=== PATIENT | female | born 1945 | race Caucasian/White ===

== ENCOUNTER 2016-12-06 15:09 | Emergency (ER) | payer OTHER ==
[~2016-12-06] VITALS: Ht 162.6 cm; Wt 113.4 kg
--- NOTE | ~2016-12-06 | EKG ---
[address] [address] ELECTROCARDIOGRAM REPORT Name: MICHAEL ANDERS Room #: DEP [facility]ENTERKati#: [id number] Admission: 12/06/16 Attend Phys: Discharge: 12/06/16 Date of : 41 Report #: [id number] THIS REPORT FOR: //name// [facility] ED Test Date: 2016-12-06 Test Time: 15:46:18 Pat Name: MICHAEL ANDERS Department: Room: Gender: F Pharmacy Laboratory Technician: [place] : 1945 Requested By: Ralph Thayer Order Number: [id number] MD: Jabari Walker Measurements Intervals [facility] Rate: 64 P: 43 MS: 171 QRS: 7 QRSD: 100 T: 11 QT: 420 QTc: 434 Interpretive Statements Sinus rhythm Abnormal R-wave progression, early transition No previous ECG available for comparison Electronically Signed On 12-07-2016 7:45:07 CDT by Jabari Walker [email or web address] <ELECTRONICALLY SIGNED> By: Jabari Walker MD 12/07/16 0745 [id number] Jabari Walker MD /LUDY
[2016-12-06] MEDS ORDERED: PRILOSEC 10MG C10 MG PO (15:31)
[2016-12-06] MEDS ORDERED: EXCEDRIN CAPLE1 EACH PO (15:31)
[2016-12-06] MEDS ORDERED: ASPIRIN325 PO (15:31)
[2016-12-06 15:43] LABS: ABSOLUTE NEUTROPHILS 3.1 thou/uL (1.4-8.2); BASOPHILS 0.9 % (0.0-2.0); EOSINOPHILS 4.7 % (0.0-3.0); HEMATOCRIT 42.1 % (37.0-47.0); HEMOGLOBIN 14.4 gm/dL (12.0-15.0); LYMPHOCYTES 32.7 % (24.0-44.0); MCH 33.5 pg (26.0-34.0); MCHC 34.2 g/dL (28.0-37.0); MCV 98.1 fL (80.0-100.0); MONOCYTES 7.8 % (1.0-8.0); PLATELET COUNT 150 thou/uL (150-400); POLYS 53.9 % (36.0-66.0); RBC 4.29 mil/uL (4.20-5.00); RDW 14.4 % (10.5-14.5); WBC 5.7 thou/uL (4.0-11.0)
[2016-12-06 15:44] LABS: MANUAL DIFF NO
[2016-12-06 15:52] LABS: ANION GAP 9 mmol/L (7-16); BUN 12 mg/dL (7-18); CALCIUM 9.2 mg/dL (8.5-10.1); CHLORIDE 103 mmol/L (98-107); CO2 25 mmol/L (21-32); CREATININE 0.9 mg/dL (0.6-1.0); GLUCOSE 102 mg/dL (74-106); POTASSIUM 3.7 mmol/L (3.5-5.1); SODIUM 137 mmol/L (136-145)
[2016-12-06 16:00] LABS: ALBUMIN 3.9 g/dL (3.4-5.0); ALKALINE PHOSPHATASE 58 U/L (46-116); MAGNESIUM 1.9 mg/dL (1.8-2.4); SGOT 19 U/L (15-37); SGPT 12 U/L (30-65); TOTAL BILIRUBIN 0.6 mg/dL (<0.1-1.0); TOTAL PROTEIN 7.2 g/dL (6.4-8.2); TROPONIN-I < 0.04 ng/mL (<0.04-0.07)
[2016-12-06 16:33] LABS: URINE BILIRUBIN NEGATIVE (Negative); URINE BLOOD 2+ (Negative); URINE COLOR YELLOW; URINE GLUCOSE-RANDOM* NEGATIVE (Negative); URINE KETONES NEGATIVE (Negative); URINE NITRITE NEGATIVE (Negative); URINE PROTEIN (DIPSTICK) NEGATIVE (Negative); URINE SPECIFIC GRAVITY 1.025 (1.003-1.035); URINE UROBILINOGEN 0.2 E.U./dl (0.2-1.0)
[2016-12-06 16:45] LABS: SQUAMOUS 4-10 Moderate /LPF (0-3)
[2016-12-06 16:48] LABS: HYALINE CASTS 4-10 Moderate /LPF (None Seen)
[2016-12-06 16:49] LABS: URINE WBC >25 Many /HPF (0-5); WBC CLUMPS Few (None Seen)
[2016-12-06 16:50] LABS: CRYSTALS None Seen /LPF (None Seen)
[2016-12-06 18:00] VITALS: BP 140/86
== END 2016-12-06 18:02 | disposition home or self-care (01) ==
LOC: ER 15:09
PROVIDERS: Emergency Medicine
DX: R55 Syncope and collapse (principal); R03.0 Elevated blood-pressure reading, without diagnosis of hypertension; F10.99 Alcohol use, unspecified with unspecified alcohol-induced disorder